=== PATIENT | male | born 2000 | race Caucasian/White ===

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

== ENCOUNTER 2020-04-10 20:23 | Emergency (ER) | payer MEDICAID, SELFPAY ==
[2020-04-10 20:29] VITALS: BP 137/80; PULSE 88; RESP 16; TEMP 36.8; O2SAT 98
--- NOTE | 2020-04-10 20:48 | ED.GENADUL_ITS ---
Discharge Plan Disposition Patient Disposition: HOME Condition: Stable Discharge Details Chief Complaint: Laceration Clinical Impression: Foreign body of right thigh Primary Care Provider: Billy Capellan ED Provider: Eligio Baez Home Meds and New Rx's Prescriptions: New cephalexin 500 mg tablet 500 mg PO QID Qty: 28 RF: 0 Continued albuterol sulfate [ProAir HFA] 90 mcg/actuation Hfa Aerosol Inhaler INHALATION RF: 0 Discharge Instructions Additional Instructions: if you have spreading redness or yellow/white discharge from the wound return to the emergency department try to keep the wound clean, if it becomes dirty clean with soap and water Medical Decision Making 19yo male comes in after he was moving pressure treated and wood and a splinter went into his right anterior upper thigh area. No falls or other trauma. States he tried pulling the wood out but couldn't so came here. He does have what feels like a splinter with 1mm break in skin no redness or rashes. Will inject lidocaine and attempt removal removed a 1cm piece of wood and did not feel or see any other FB even on u/s. Will place on abx and return precautions given Differential Diagnosis Differential Diagnosis: foreign body, lac HPI General Mode of arrival: ambulatory . Date/Time Provider Initiated Documentation: 04/10/20 20:36 . Limitations to Documentation: no limitations . Information obtained by: patient . History of Present Illness 19 year old M presents to the emergency department with the chief complaint of ?foreign body, described as moderate, Patient reports no radiation. Patient started experiencing this hour(s) (1) and it has been constant. No relieving factors improve symptom(s), No exacerbating factors reported . Patient did receive the following treatments prior to arrival, none Related Data Home Medications Medication Instructions Recorded Confirmed albuterol sulfate [ProAir HFA] INHALATION 04/10/20 cephalexin 500 mg PO QID #28 tab 04/10/20 Previous Rx's Medication Instructions Recorded cephalexin 500 mg PO QID #28 tab 04/10/20 Allergies Allergy/AdvReac Type Severity Reaction Status Date / Time No Known Allergies Allergy Verified 03/29/19 16:30 General Stated Complaint: Laceration MANDEEP: 4 Review of Systems All systems reviewed & are unremarkable except as noted in HPI and below Constitutional Constitutional: Denies chills, Denies fever(s) and Denies weakness ENT Ears, Nose, Mouth, and Throat: Denies change in voice Cardiovascular Cardiovascular: Denies dyspnea Respiratory Respiratory: Denies dyspnea Gastrointestinal Gastrointestinal: Denies abdominal pain, Denies nausea and Denies vomiting Genitourinary Genitourinary: Denies dysuria Musculoskeletal Musculoskeletal: Denies joint swelling Integumentary/Breasts Skin/Breast: Denies rash Neurologic Neurologic: Denies weakness Psychiatric Psychiatric: Denies depression PFSH Family History Mother Healthy adult on routine physical examination Other Diabetes MGM, MGF Essential hypertension MGF Personal history of malignant neoplasm MGGM - breast, colon, cervical Heart disease MGF Myocardial infarction MGF Father Myocardial infarction Near the age of 50 Social History Smoking/Tobacco Use Status: Never Alcohol Intake: never Drug use: Never Substance use type: does not use Household members: family and other Details: Mom, Brother, Grandparents Housing: house Pets and animals: Yes Pets and animals: dog(s) and bird(s) Sexually active: No Seatbelt use: always Helmet use: Yes 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 Working smoke detector in home: Yes Fire extinguisher in home: Yes Carbon monox detector in home: Yes Firearms in home: Yes Firearms unloaded and locked: Yes Do you feel safe at home: Yes Do you feel safe in your relationship?: Yes Exam Const General: no acute distress Orientation: alert HENMT Head: normal to inspection Ears: external ears normal General nose exam: external nose normal Mouth: moist mucous membranes Eyes General: appearance normal, both eyes and all related structures Neck Neck: normal visual inspection Resp Effort & Inspection: normal respiratory effort and able to speak in complete sentences Cardio Rate: regular rate Skin General skin exam: no rashes or lesions noted Neuro General: patient alert and patient oriented x3 Extrem General: normal to inspection Psych Mental Status: mental status grossly normal Course Vital Signs Vital signs: Vital Signs Temperature 36.8 C 04/10/20 20: Pulse 88 04/10/20 20:29 Respiratory Rate 16 04/10/20 20:29 Blood Pressure 137/80 04/10/20 20:29 Pulse Oximetry 98 04/10/20 20:29 Temperature 36.8 C 04/10/20 20:29 Temperature Source Skin 04/10/20 20:29 Pulse 88 04/10/20 20:29 Respiratory Rate 16 04/10/20 20:29 Respiratory Effort Non-Labored 04/10/20 20:32 Blood Pressure 137/80 04/10/20 20:29 Blood Pressure Position Sitting 04/10/20 20:29 Pulse Oximetry 98 04/10/20 20:29 Oxygen Delivery Method Room Air 04/10/20 20:29 Oxygen Flow Rate 0 04/10/20 20:29 Pain Level 4 04/10/20 20:29 Procedures Foreign Body Removal Time Out Performed: yes Site: right and lower extremity Description of foreign body: other (splinter of wood) Sedation/Analgesia: none Technique: removal with forceps Confirmed by:: direct visualization and ultrasound Complications: none Post-procedure exam: awake, alert, normal BP, normal HR and normal O2 sat Neurovascular: normal distal pulse, normal capillary fill, distal light touch sensation intact, distal motor function normal, no signs of compartment syndrome and no change from pre-procedure
[2020-04-10] MEDS: Cephalexin 500 MG CAP PO (21:38)
== END 2020-04-10 21:20 | disposition home or self-care (01) ==
PROVIDERS: Emergency Provider Emergency Medicine; PCP Pediatrics
DX: S71.141A Puncture wound with foreign body, right thigh, initial encounter (principal); W45.8XXA Other foreign body or object entering through skin, initial encounter; Y99.0 Civilian activity done for income or pay
CPT/HCPCS: 90471; 99284; 99283

== ENCOUNTER 2020-07-12 09:17 | Emergency (ER) | payer MEDICAID, SELFPAY ==
[2020-07-12 09:25] VITALS: BP 120/80; PULSE 85; RESP 18; TEMP 37.2; O2SAT 97
--- NOTE | 2020-07-12 10:24 | ED.GENADUL_ITS ---
Discharge Plan Disposition Patient Disposition: HOME Condition: Stable Discharge Details Clinical Impression: URI (upper respiratory infection), Post-tussive emesis Primary Care Provider: Billy Capellan ED Provider: Constantine Barron Home Meds and New Rx's Prescriptions: No Action No Known Home Meds RF: 0 Discharge Instructions Instructions: Upper Respiratory Infection (ED) Additional Instructions: Please take ibuprofen over the counter. Take 600mg by mouth every 6 hours as needed for fever or discomfort. Please drink plenty of fluids to stay hydrated and allow for plenty of rest. COVID-19 testing is pending. Please quarantine yourself until results are negative. Please contact your primary care physician to arrange follow-up. Return to the ER for any worsening or new concerning symptoms. Stand Alone Forms: PENDING COVID-19 TESTING, Work Release Referrals: Billy Capellan MD [Primary Care Provider] - Discharge Data Discharge Date/Time-TO BE ENTERED AT DEPARTURE: 07/12/20 11:45 Medical Decision Making 19-year-old male here with productive cough cough over the past 3 days, associated fever, body aches, sinus congestion, posttussive emesis. Lungs are clear to auscultation. Patient is saturating well in no respiratory distress. He does have intermittent cough. Abdominal exam is benign. No signs of focal bacterial infection on exam. Chest x-ray to assess for pneumonia was interpreted by radiology: No acute disease or suspicious finding. Concern for likely viral respiratory illness. Although early in the season, consider influenza. Consider COVID-19. COVID-19 testing pending at time of discharge. Patient recommended to quarantine. Symptomatic treatment advised including staying hydrated and allowing for plenty of rest. Usual and customary discharge instructions otherwise provided. HPI General Mode of arrival: ambulatory . Date/Time Provider Initiated Documentation: 07/12/20 09:35 . Limitations to Documentation: no limitations . Information obtained by: patient . HPI Narrative: 19-year-old male here with 3 to 4 days of respiratory illness. Patient notes 3 days of productive cough, cough is productive of brown sputum. He has associated posttussive emesis, muscle aches, headache, sinus congestion and fever. He does not have associated shortness of breath. No recent travel. No known covid exposure. Significant other is sick with respiratory illness. Related Data Home Medications Medication Instructions Recorded Confirmed Unknown [No Known Home Meds] 07/12/20 07/12/20 Allergies Allergy/AdvReac Type Severity Reaction Status Date / Time No Known Allergies Allergy Verified 07/12/20 09:30 General Stated Complaint: RespSymp MANDEEP: 3 Review of Systems All systems reviewed & are unremarkable except as noted in HPI and below Constitutional Constitutional: Reports body ache(s), Reports fever(s) and Reports headache(s) ENT Ears, Nose, Mouth, and Throat: Reports headache(s), Reports nasal congestion and Reports sore throat Cardiovascular Cardiovascular: Denies dyspnea Respiratory Respiratory: Reports cough and Denies dyspnea Gastrointestinal Gastrointestinal: Reports as per HPI, Denies abdominal pain and Denies nausea Neurologic Neurologic: Reports headache(s) PFSH Medical History Asthma History of prematurity Surgical History Repair of inguinal hernia Family History Mother Healthy adult on routine physical examination Other Diabetes MGM, MGF Essential hypertension MGF Personal history of malignant neoplasm MGGM - breast, colon, cervical Heart disease MGF Myocardial infarction MGF Father Myocardial infarction Near the age of 50 Social History Smoking/Tobacco Use Status: Never Alcohol Intake: never Drug use: Never Substance use type: does not use Household members: family and other Details: Mom, Brother, Grandparents Housing: house Pets and animals: Yes Pets and animals: dog(s) and bird(s) Sexually active: No Seatbelt use: always Helmet use: Yes 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 Working smoke detector in home: Yes Fire extinguisher in home: Yes Carbon monox detector in home: Yes Firearms in home: Yes Firearms unloaded and locked: Yes Do you feel safe at home: Yes Do you feel safe in your relationship?: Yes Exam Const General: cooperative and no acute distress HENMT Mouth: moist mucous membranes Throat: uvula midline, no peritonsillar masses, posterior oropharynx abnormal erythema; no cobblstoning, no edema and no exudates and no uvular edema Other: No stridor or trismus Eyes Conjunctivae: normal conjunctivae Sclera: normal sclerae Neck Neck: full ROM, trachea midline and supple Resp Effort & Inspection: normal respiratory effort and cough Auscultation: clear to auscultation bilaterally, no rales, no rhonchi and no wheezes Cardio Rate: regular rate and not tachycardic Rhythm: regular rhythm GI Palpation: soft, not firm, no guarding, no masses, not rigid and nontender Skin General skin exam: no rashes or lesions noted Neuro General: patient alert, patient awake and tone normal Psych Appearance: grossly normal Mental Status: mental status grossly normal Course Vital Signs Vital signs: Vital Signs Temperature 37.2 C 07/12/20 09:25 Pulse 85 07/12/20 09:25 Respiratory Rate 18 07/12/20 09:25 Blood Pressure 120/80 07/12/20 09:25 Pulse Oximetry 97 07/12/20 09:25 Temperature 37.2 C 07/12/20 09:25 Temperature Source Oral 07/12/20 09:25 Pulse 85 07/12/20 09:25 Respiratory Rate 18 07/12/20 09:25 Respiratory Effort Non-Labored 07/12/20 09:31 Blood Pressure 120/80 07/12/20 09:25 Blood Pressure Position Sitting 07/12/20 09:25 Pulse Oximetry 97 07/12/20 09:25 Oxygen Delivery Method Room Air 07/12/20 09:25 Oxygen Flow Rate 0 07/12/20 09:25 Pain Level 6 07/12/20 09:25
[2020-07-12 10:51] VITALS: BP 137/88; PULSE 95; RESP 18; TEMP 36.7; O2SAT 99
--- NOTE | 2020-07-12 11:02 | DI.RAD_ITS ---
EXAM: XR PORTABLE CHEST AP CLINICAL HISTORY: cough, pui TECHNIQUE: 2D digital imaging was performed. COMPARISON: No exams were available for comparison FINDINGS: MEDIASTINUM: Normal. HEART: Normal. PULMONARY VASCULATURE: Normal. LUNGS: Clear. PLEURAL SPACE: No pleural effusion or pneumothorax. BONE:Within normal limits for the patient's age. OTHER FINDINGS:Normal. IMPRESSION: No acute pulmonary findings. DATA REPOSITORY: RADIATION DOSE DELIVERED:
[2020-07-12 11:11] VITALS: BP 119/78; PULSE 68; RESP 18; TEMP 36.8; O2SAT 98
--- NOTE | 2020-07-12 11:26 | DI.VRAD_ITS ---
PROCEDURE INFORMATION: Exam: XR Chest, 1 View Exam date and time: 07/12/2020 10:56 AM Age: 19 years old Clinical indication: Cough; Additional info: Pui for covid TECHNIQUE: Imaging protocol: XR of the chest Views: 1 view. COMPARISON: CR CHEST 2 VIEWS PA,LAT 09/06/2017 9:01 AM FINDINGS: Lungs: The lungs are normally expanded and clear. Pleural space: Normal. Heart/Mediastinum: Normal heart and cardiomediastinal silhouette. Vasculature: Normal pulmonary vessel caliber. Normal aorta. Bones/joints: The bones are intact. IMPRESSION: No acute disease or suspicious finding. Dictated and Authenticated by: Dirk Beach MD. Ordering:AG Fitch MD
[2020-07-15 06:08] LABS: SARS-CoV-2 RNA Undetected (Undetected); SARS-CoV-2 Specimen Source Nasopharynx
--- NOTE | 2020-07-18 08:30 | NUR.NOTE ---
Nursing Note: Contacted PT regarding negative COVID results. Spoke to PT directly over the phone to provide results.
== END 2020-07-12 11:45 | disposition home or self-care (01) ==
PROVIDERS: Emergency Provider Student in an Organized Health Care Education/Training Program; PCP Pediatrics
DX: J06.9 Acute upper respiratory infection, unspecified (principal); R50.9 Fever, unspecified; R09.81 Nasal congestion; R11.10 Vomiting, unspecified; Z11.59 Encounter for screening for other viral diseases
CPT/HCPCS: 87449; 87880; 99284; U0003; 71045; 87081; 99283

== ENCOUNTER 2021-02-05 12:24 | Emergency (ER) | payer MEDICAID, SELFPAY ==
[2021-02-05 12:32] VITALS: BP 135/73; PULSE 96; RESP 20; TEMP 36.8; O2SAT 98
--- NOTE | 2021-02-05 13:35 | DI.RAD_ITS ---
EXAM: XR PORTABLE CHEST AP CLINICAL HISTORY: cough. TECHNIQUE: 2D digital imaging was performed. COMPARISON: CR,XR XR PORTABLE CHEST AP from 07/12/2020 FINDINGS: LUNGS: Clear. No pleural abnormality seen. HEART: Normal. MEDIASTINUM: Normal. OTHER FINDINGS: None. IMPRESSION: No acute pulmonary findings. DATA REPOSITORY: RADIATION DOSE DELIVERED: Total DLP
--- NOTE | 2021-02-05 13:44 | W.ED.GENAD ---
Discharge Plan Disposition Patient Disposition: HOME Condition: Stable Discharge Details Chief Complaint: RespSymp Clinical Impression: Cough Primary Care Provider: Billy Capellan ED Provider: Pa Yanez Home Meds and New Rx's Prescriptions: No Action No Known Home Meds RF: 0 Discharge Instructions Instructions: Acute Cough (ED) Additional Instructions: Chest x-ray rapid strep are negative. Throat culture and Covid test pending. Quarantine until your Covid test has returned negative. Xrcg-xwz-hvafzze medications as directed control. Rest, plenty of fluids to avoid dehydration. Please watch for new or worsening symptoms and return to the ER for any concerns. Otherwise I recommend reaching out your primary care provider a few days to discuss your symptoms and outpatient reevaluation. Stand Alone Forms: Work Release, POSITIVE COVID-19/TO BE TESTED Medical Decision Making 20-year-old gentleman presents with 3 high 4-day history of URI-like symptoms. Clinically he appears well, normotensive, pulse in the 90s, respirations appropriate, afebrile, O2 sat 98% on room air. Will obtain send out Covid swab as he appears stable and will likely not require admission, chest x-ray to rule out pneumonia, and a rapid strep. I do not believe that hematology laboratory are indicated. Breathing treatments are also not indicated. Rapid strep negative. Chest x-ray read by radiology as negative. Covid pending. Discussed patient. He will continue with [id number]-jge-ceopdxe medication for conservative care. No clear indication therapy. Discussed importance of quarantining until his Covid test returns negative. Medical Records Medical records reviewed: Yes I reviewed the patient's medical records. Imaging Data Radiologic Study: Attestation: I personally reviewed and interpreted this imaging study as follows: Imaging: X-Ray Radiologist's impression: Chest negative Lab Data Lab results narrative: Rapid strep negative HPI General Mode of arrival: ambulatory. Date/Time Provider Initiated Documentation: 02/05/21 12:44. Limitations to Documentation: no limitations. Information obtained by: patient. HPI Narrative: This is a 20-year-old gentleman, denies past medical history, does not smoke cigarettes. He presents to the ER reporting 3-4-day history of nasal and chest congestion, cough that is primarily dry but does occasionally cough clear phlegm. Mildly sore throat, vomiting x1 late last night early this morning. He believes the vomiting was induced by excessive coughing. Denies headache, ear pain, fever, chest pain, shortness of breath, abdominal pain, diarrhea. He reports that his chest wall is sore when he coughs. He has tried fdkc-fom-pxkpqzs medication with minimal relief. He denies recent travel or sick contacts. Denies rash, pain or swelling in the legs. Related Data Home Medications Medication Instructions Recorded Confirmed Unknown [No Known Home Meds] 07/12/20 02/05/21 Allergies Allergy/AdvReac Type Severity Reaction Status Date / Time No Known Allergies Allergy Verified 02/05/21 12:39 General Stated Complaint: RespSymp MANDEEP: 3 Review of Systems Constitutional Constitutional: Denies fever(s) and Denies headache(s) ENT Ears, Nose, Mouth, and Throat: Denies headache(s) and Reports sore throat Cardiovascular Cardiovascular: Denies chest pain and Denies dyspnea Respiratory Respiratory: Reports cough and Denies dyspnea Gastrointestinal Gastrointestinal: Denies abdominal pain, Denies nausea and Reports vomiting Musculoskeletal Musculoskeletal: Denies back pain Integumentary/Breasts Skin/Breast: Denies rash Neurologic Neurologic: Denies headache(s) [facility] Medical History (Updated 02/05/21 @ 13:52 by KIERRA Moran) Asthma History of prematurity Surgical History Repair of inguinal hernia Family History Mother Healthy adult on routine physical examination Other Diabetes MGM, MGF Essential hypertension MGF Personal history of malignant neoplasm MGGM - breast, colon, cervical Heart disease MGF Myocardial infarction MGF Father Myocardial infarction Near the age of 50 Social History Smoking/Tobacco Use Status: Never Smoking risk assessment performed?: Yes Alcohol Intake: never Drug use: Never Substance use type: does not use Household members: family and other Details: Mom, Brother, Grandparents Housing: house Pets and animals: Yes Pets and animals: dog(s) and bird(s) Sexually active: No Seatbelt use: always Helmet use: Yes 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 Working smoke detector in home: Yes Fire extinguisher in home: Yes Carbon monox detector in home: Yes Firearms in home: Yes Firearms unloaded and locked: Yes Do you feel safe at home: Yes Do you feel safe in your relationship?: Yes Exam Const General: cooperative, healthy appearing, comfortable and no acute distress Orientation: alert, awake and oriented x3 HENMT Head: normal to inspection, normocephalic and atraumatic Ears: external ears normal, TM's normal bilaterally and EAC's normal General nose exam: external nose normal and nares normal Face and sinus: normal facial exam Mouth: moist mucous membranes Throat: uvula midline, no peritonsillar masses and posterior oropharynx abnormal erythema (Mild) Eyes General: appearance normal, both eyes and all related structures Conjunctivae: conjunctivae normal Sclera: sclerae normal Neck Neck: normal visual inspection, full ROM, no lymphadenopathy, trachea midline, supple and nontender Resp Effort & Inspection: normal respiratory effort and able to speak in complete sentences Auscultation: clear to auscultation bilaterally Cardio Rate: regular rate Rhythm: regular rhythm GI Palpation: soft and nontender Back/Spine/Pelvis Back: No back tenderness Skin General skin exam: no rashes or lesions noted Neuro General: patient alert, patient awake, moves all extremities and no focal motor deficits Cognition: normal cognition Speech: speech normal Gait: normal gait Sensory Exam: no sensory deficits noted Psych Appearance: grossly normal Mental Status: mental status grossly normal Course Vital Signs Vital signs: Vital Signs Temperature 36.8 C 02/05/21 12:32 Pulse 96 H 02/05/21 12:32 Respiratory Rate 20 02/05/21 12:32 Blood Pressure 135/73 02/05/21 12:32 Pulse Oximetry 98 02/05/21 12:32 Temperature 36.8 C 02/05/21 12:32 Temperature Source Oral 02/05/21 12:32 Pulse 96 H 02/05/21 12:32 Respiratory Rate 20 02/05/21 12:32 Respiratory Effort Non-Labored 02/05/21 13:19 Respiratory Depth Normal 02/05/21 13:19 Blood Pressure 135/73 02/05/21 12:32 Blood Pressure Position Sitting 02/05/21 12:32 Pulse Oximetry 98 02/05/21 12:32 Oxygen Delivery Method Room Air 02/05/21 12:32 Oxygen Flow Rate 0 02/05/21 12:32 Pain Level 3 02/05/21 12:32 Lab/Test Results Lab/Test Results: 02/05/21 13:05 Pharynx Streptococcus Screen (SHANELL) - Pending POC Strep Test-EDMUNDO(Rapid) Start: 02/05/21 12:44 Freq: .Rapid Strep Test Status: Active Protocol: Document 02/05/21 13:13 MMQ (Rec: 02/05/21 13:13 [id number] [id number]) Strep test-EDMUNDO(Rapid)-POC POC-Strep test-EDMUNDO (Rapid) Negative POC-Strep test-EDMUNDO (Rapid) Negative
[2021-02-07 12:50] LABS: COVID-19 RT-PCR UVMMC Result Negative (Negative)
== END 2021-02-05 14:05 | disposition home or self-care (01) ==
PROVIDERS: Emergency Provider Physician Assistant; PCP Pediatrics
DX: R05 Cough (principal); J02.9 Acute pharyngitis, unspecified; Z20.822 Contact with and (suspected) exposure to COVID-19
CPT/HCPCS: 87880; 99283; U0003; 71045; 87081

== ENCOUNTER 2021-10-27 17:54 | Emergency (ER) | payer MEDICAID, SELFPAY ==
[2021-10-27 18:06] VITALS: BP 150/89; PULSE 85; RESP 18; TEMP 36.8; O2SAT 100
--- NOTE | 2021-10-27 18:27 | ED.GENADUL_ITS ---
Discharge Plan Disposition Patient Disposition: HOME Condition: Stable Discharge Details Clinical Impression: Injury of groin Primary Care Provider: Billy Capellan ED Provider: Constantine Barron Home Meds and New Rx's Prescriptions: Continued albuterol sulfate 90 mcg/actuation HFA aerosol inhaler 2 puff inhalation Q4H PRN (Reason: shortness of breath or wheezing) Qty: 18 RF: 1 benzonatate 100 mg capsule 100 mg PO TID PRN (Reason: cough) Qty: 20 RF: 0 Discharge Instructions Additional Instructions: Please take ibuprofen over the counter. Take 600mg by mouth every 6 hours as needed for pain. Wear supportive underwear over the next week. Please contact your primary care physician to arrange follow-up. If you develop increased swelling and pain, or any new or worsening symptoms return to the emergency department immediately for reassessment Stand Alone Forms: Work Release Referrals: Alli Velasquez MD [ [facility] STAFF PHYSICIAN] - Discharge Data Discharge Date/Time-TO BE ENTERED AT DEPARTURE: 10/27/21 18:41 Medical Decision Making 20-year-old male presents 1 day status post injury to his groin with pain in his perineum. No concerning findings on exam. Patient was instructed to ice and use NSAIDs and monitor over the next couple days. He was instructed return immediately should any worsening or new concerning symptoms. HPI General Mode of arrival: ambulatory . Date/Time Provider Initiated Documentation: 10/27/21 18:18 . Limitations to Documentation: no limitations . Information obtained by: patient . HPI Narrative: 21-year-old male presents with chief complaint of groin pain. Patient notes that he was hit by a wood board yesterday in his groin at work. He notes continued pain in perineum. Pain is mild. No associated testicular swelling. No difficulty urinating or hematuria. No abdominal pain. Related Data Home Medications Medication Instructions Recorded Confirmed albuterol sulfate 90 mcg/actuation 2 puff INHALATION Q4H PRN #18 g 02/05/21 aerosol inhaler benzonatate 100 mg capsule 100 mg PO TID PRN #20 cap 02/05/21 Previous Rx's Medication Instructions Recorded albuterol sulfate 90 mcg/actuation 2 puff INHALATION Q4H PRN #18 g 02/05/21 aerosol inhaler benzonatate 100 mg capsule 100 mg PO TID PRN #20 cap 02/05/21 Allergies Allergy/AdvReac Type Severity Reaction Status Date / Time No Known Allergies Allergy Verified 02/05/21 12:39 General Stated Complaint: Male Reproductive Problem MANDEEP: 3 Review of Systems Gastrointestinal Gastrointestinal: Reports as per HPI Genitourinary Genitourinary: Reports as per HPI Integumentary/Breasts Skin/Breast: Reports other (No laceration) PFSH All Active Problems Cough (Acute) Injury of groin (Acute) Learning difficulty (Acute) IEP Medical History Asthma History of prematurity Surgical History Repair of inguinal hernia Family History Mother Healthy adult on routine physical examination Other Diabetes MGM, MGF Essential hypertension MGF Personal history of malignant neoplasm MGGM - breast, colon, cervical Heart disease MGF Myocardial infarction MGF Father Myocardial infarction Near the age of 50 Social History Smoking/Tobacco Use Status: Never Smoking risk assessment performed?: Yes Alcohol Intake: current Alcohol Intake frequency: a few times a month Drug use: Never Substance use type: does not use Household members: family and other Details: Mom, Brother, Grandparents Housing: house Pets and animals: Yes Pets and animals: dog(s) and bird(s) Sexually active: No Seatbelt use: always Helmet use: Yes 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 Working smoke detector in home: Yes Fire extinguisher in home: Yes Carbon monox detector in home: Yes Firearms in home: Yes Firearms unloaded and locked: Yes Do you feel safe at home: Yes Do you feel safe in your relationship?: Yes Exam Const General: cooperative and no acute distress Cardio Rate: not tachycardic GI Palpation: soft, not firm, no guarding, no masses, not rigid and nontender Male General Exam: No ecchymosis, No lacerations, No perineal induration and Yes tenderness (Mild perineum) Penis: normal penis and no swelling Meatus: no meatla discharge Scrotum: scrotum normal, no masses and no scrotal swelling Testes: normal, testicular lie normal and epididymides normal Skin General skin exam: no rashes or lesions noted Extrem General: no edema Course Vital Signs Vital signs: Vital Signs Temperature 36.8 C 10/27/21 18:06 Pulse 85 10/27/21 18:06 Respiratory Rate 18 10/27/21 18:06 Blood Pressure 150/89 H 10/27/21 18:06 Pulse Oximetry 100 10/27/21 18:06 Temperature 36.8 C 10/27/21 18:06 Temperature Source Temporal Artery Scan 10/27/21 18:06 Pulse 85 10/27/21 18:06 Respiratory Rate 18 10/27/21 18:06 Respiratory Effort Non-Labored 10/27/21 18:20 Blood Pressure 150/89 H 10/27/21 18:06 Pulse Oximetry 100 10/27/21 18:06 Oxygen Delivery Method Room Air 10/27/21 18:06 Oxygen Flow Rate 0 10/27/21 18:06 Pain Level 7 10/27/21 18:06 PAWSS Have you Been Recently Intoxicated or Drunk Within the Last 30 days?: No Have you Ever Experienced Previous Episodes of Alcohol Withdrawal?: No Have you ever Experienced Withdrawal Seizures?: No Have you ever Experienced Delirium Tremens(DT)s?: No Have you ever undergone Alcohol Rehabilitation Treatment (i.e, inpt ot outpatient treatment programs)?: No Have you ever Experienced Blackouts?: No Have you ever Combined Alcohol with other Downers within the last 90 days?: No Have you ever Combined Alcohol with any other Substance of Abuse during the last 90 days?: No Positive Blood Alcohol level on Presentation? [PCS.BAL]: No Evidence of Increased Autonomic Activity (i.e. HR>120, tremor, sweating, agitation, nausea)?: No Result: 0
== END 2021-10-27 18:41 | disposition home or self-care (01) ==
PROVIDERS: Emergency Provider Student in an Organized Health Care Education/Training Program; PCP Pediatrics
DX: S39.81XA Other specified injuries of abdomen, initial encounter (principal); W22.8XXA Striking against or struck by other objects, initial encounter; Y99.0 Civilian activity done for income or pay
CPT/HCPCS: 99282

== ENCOUNTER 2021-11-17 11:51 | Emergency (ER) | payer MEDICAID, SELFPAY ==
--- NOTE | 2021-11-17 11:45 | DI.US_ITS ---
Exam(s) US SCROTUM EXAM: US SCROTUM CLINICAL HISTORY: struck in groin 1 week ago, pain TECHNIQUE: Scrotal ultrasound was performed utilizing scanning with high-frequency transducer. COMPARISON: No exams were available for comparison FINDINGS: The testes are normal in size and shape and are normal in echotexture. There is normal vascular flow of the testes on Doppler evaluation and flow is symmetrical. No testicular mass identified. The epididymi are unremarkable in appearance with normal vascular flow with an incidental 5 millimete r left epididymal cyst or spermatocele.. There is no evidence of a varicocele or hydrocele. IMPRESSION: Normal scrotal ultrasound. RADIATION DOSE DELIVERED:
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
[2021-11-17 11:56] VITALS: BP 139/94; PULSE 85; TEMP 37.2; O2SAT 100
[2021-11-17 12:56] LABS: Bilirubin Negative (Negative); Blood Negative (Negative); Clarity Clear (Clear); Glucose Negative (Negative); Ketones Negative (Negative); Leukocyte Esterase Negative (Negative); Nitrite Negative (Negative); Specific Gravity >= 1.030 (1.005-1.025); Urobilinogen 0.2 EU/dL (Up TO 0.2)
== END 2021-11-17 13:40 | disposition home or self-care (01) ==
PROVIDERS: Emergency Provider Physician Assistant; PCP Pediatrics
DX: N50.812 Left testicular pain (principal)
CPT/HCPCS: 99284; 76870; 81003; 99283

== ENCOUNTER 2021-11-30 17:14 | Emergency (ER) | payer MEDICAID, SELFPAY ==
[2021-11-30 17:23] VITALS: BP 141/89; PULSE 84; RESP 20; TEMP 37.3; O2SAT 97
--- NOTE | 2021-11-30 17:45 | ED.GENADUL_ITS ---
Discharge Plan Disposition Patient Disposition: HOME Condition: Stable Discharge Details Clinical Impression: Viral URI with cough Primary Care Provider: Unknown,Unknown ED Provider: Rosario Jacinto Home Meds and New Rx's Prescriptions: New benzonatate 100 mg capsule 100 mg PO TID PRN (Reason: cough) Qty: 10 RF: 0 Continued albuterol sulfate 90 mcg/actuation HFA aerosol inhaler 2 puff inhalation Q4H PRN (Reason: shortness of breath or wheezing) Qty: 18 RF: 1 Discharge Instructions Instructions: Upper Respiratory Infection (ED), Acute Cough (ED) Additional Instructions: Drink plenty of fluids and get plenty of rest. Alternate tylenol and motrin as needed and directed for pain. Continue your albuterol inhaler as needed and directed for cough or shortness of breath. A prescription for cough medication has been sent electronically to your pharmacy. You can continue tuzr-ibq-ovhrnsm cough and cold medication as needed and directed. Follow-up with your primary care doctor in 1 week. Return to the emergency department with any worsening or new concerning symptoms. Please quarantine until your COVID test result is available if confirmed negative. Stand Alone Forms: PENDING COVID-19 TESTING, Work Release Discharge Data Discharge Date/Time-TO BE ENTERED AT DEPARTURE: 11/30/21 18:45 Discharge Physician: Rosario Jacinto Medical Decision Making 21-year-old male presents to the ED with complaint of sore throat, headache, cough, wheezing for the past 4 days. Sent to the ED by his employer for a work note. Patient is vaccinated for COVID but has not yet received a booster. He appears comfortable and nontoxic. Normal ENT exam. Lungs clear bilaterally. Oxygen saturation 97% on room Differential diagnosis includes COVID, viral syndrome, URI with cough. As patient has clear lungs throughout without fever and normal oxygen saturation, do not feel indication for chest x-ray at this time. He is advised to continue his albuterol inhaler and we will send a prescription for cough medication. A send out COVID swab was obtained. Advised to quarantine until his test result is available and if confirmed negative. Work note given. Advised to follow up with the primary care doctor for re-evaluation. Usual and customary return precautions given prior to discharge. Medical Records Medical records reviewed: Yes I reviewed the patient's medical records. HPI General Mode of arrival: ambulatory . Date/Time Provider Initiated Documentation: 11/30/21 17:23 . Limitations to Documentation: no limitations . Information obtained by: patient . HPI Narrative: Patient is a 21-year-old male with no significant past medical history presenting with nasal congestion and runny nose, sore throat, cough and occasional wheezing for the past 4 days. Patient was sent here by his employer for evaluation and for work note. Patient states the coughing and chest congestion is a significant bothering him the most. He states he has been fully vaccinated for COVID but has not yet received a COVID booster. He denies any known exposure to coronavirus. He does admit to some loss of sense of smell. He admits to occasional vomiting that occurs with coughing episodes. Related Data Home Medications Medication Instructions Recorded Confirmed albuterol sulfate 90 mcg/actuation 2 puff INHALATION Q4H PRN #18 g 02/05/21 11/17/21 aerosol inhaler benzonatate 100 mg PO TID PRN #10 cap 11/30/21 Previous Rx's Medication Instructions Recorded albuterol sulfate 90 mcg/actuation 2 puff INHALATION Q4H PRN #18 g 02/05/21 aerosol inhaler benzonatate 100 mg PO TID PRN #10 cap 11/30/21 Allergies Allergy/AdvReac Type Severity Reaction Status Date / Time No Known Allergies Allergy Verified 11/17/21 12:12 General Stated Complaint: RespSymp MANDEEP: 4 Review of Systems All systems reviewed & are unremarkable except as noted in HPI and below Constitutional Constitutional: Reports as per HPI, Denies chills, Denies fever(s) and Reports headache(s) Eyes Eyes: Denies blurry vision ENT Ears, Nose, Mouth, and Throat: Denies dizziness, Reports headache(s), Reports sore throat and Denies throat swelling Cardiovascular Cardiovascular: Denies chest pain and Denies dyspnea Respiratory Respiratory: Reports cough and Denies dyspnea Gastrointestinal Gastrointestinal: Denies abdominal pain, Denies diarrhea and Denies vomiting Genitourinary Genitourinary: Denies hematuria and Denies dysuria Musculoskeletal Musculoskeletal: Denies back pain and Denies numbness Integumentary/Breasts Skin/Breast: Denies lesions and Denies rash Neurologic Neurologic: Denies dizziness, Reports headache(s), Denies localized weakness and Denies numbness Allergic/Immunologic Allergic/Immunologic: Denies throat swelling PFSH All Active Problems (Updated 11/30/21 @ 17:53 by Rosario Jacinto DO) Viral URI with cough (Acute) Cough (Acute) Injury of groin (Acute) Left testicular pain (Acute) Learning difficulty (Acute) IEP Medical History (Updated 11/30/21 @ 17:53 by Rosario Jacinto DO) Asthma History of prematurity Surgical History Repair of inguinal hernia Family History Mother Healthy adult on routine physical examination Other Diabetes MGM, MGF Essential hypertension MGF Personal history of malignant neoplasm MGGM - breast, colon, cervical Heart disease MGF Myocardial infarction MGF Father Myocardial infarction Near the age of 50 Social History Smoking/Tobacco Use Status: Never Smoking risk assessment performed?: Yes Alcohol Intake: current Alcohol Intake frequency: a few times a month Drug use: Never Substance use type: does not use Household members: family and other Details: Mom, Brother, Grandparents Housing: house Pets and animals: Yes Pets and animals: dog(s) and bird(s) Sexually active: No Seatbelt use: always Helmet use: Yes Drive intox or ride 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 Working smoke detector in home: Yes Fire extinguisher in home: Yes Carbon monox detector in home: Yes Firearms in home: Yes Firearms unloaded and locked: Yes Do you feel safe at home: Yes Do you feel safe in your relationship?: Yes Exam Const General: cooperative, healthy appearing and no acute distress HENMT Head: normal to inspection Ears: hearing grossly normal bilaterally and external ears normal Face and sinus: normal facial exam Mouth: oral mucosae normal Throat: posterior oropharynx normal Eyes General: appearance normal, both eyes and all related structures EOM: EOM intact bilaterally Neck Neck: normal visual inspection and No submandibular swelling Lymphatic: no lymphadenopathy noted Chest Chest: normal inspection of the chest and no tenderness Resp Effort & Inspection: normal respiratory effort and able to speak in complete sentences Auscultation: clear to auscultation bilaterally Cardio Rate: regular rate Rhythm: regular rhythm GI Inspection: normal to inspection Palpation: soft, not firm, not rigid and nontender Auscultation: normal bowel sounds Skin General skin exam: no rashes or lesions noted Neuro General: patient alert, patient awake and patient oriented x3 Cognition: normal cognition Speech: speech normal Motor: muscle tone normal throughout Sensory Exam: no sensory deficits noted Extrem General: normal to inspection, full ROM, capillary refill normal, no calf tenderness bilaterally and no edema Psych Appearance: grossly normal Mental Status: mental status grossly normal Speech and Movement: speech and movement normal Affect: normal affect Course Vital Signs Vital signs: Vital Signs Temperature 99.2 F 11/30/21 17:23 Pulse 84 11/30/21 17:23 Respiratory Rate 20 11/30/21 17:23 Blood Pressure 141/89 H 11/30/21 17:23 Pulse Oximetry 97 11/30/21 17:23 Temperature 99.2 F 11/30/21 17:23 Temperature Source Oral 11/30/21 17:23 Pulse 84 11/30/21 17:23 Respiratory Rate 20 11/30/21 17:23 Respiratory Effort 11/30/21 17:32 Respiratory Depth Normal 11/30/21 17:32 Blood Pressure 141/89 H 11/30/21 17:23 Blood Pressure Position Standing 11/30/21 17:23 Pulse Oximetry 97 11/30/21 17:23 Oxygen Delivery Method Room Air 11/30/21 17:23 Oxygen Flow Rate 0 11/30/21 17:23 PAWSS Have you Been Recently Intoxicated or Drunk Within the Last 30 days?: No Have you Ever Experienced Previous Episodes of Alcohol Withdrawal?: No Have you ever Experienced Withdrawal Seizures?: No Have you ever Experienced Delirium Tremens(DT)s?: No Have you ever undergone Alcohol Rehabilitation Treatment (i.e, inpt ot outpatient treatment programs)?: No Have you ever Experienced Blackouts?: No Have you ever Combined Alcohol with other Downers within the last 90 days?: No Have you ever Combined Alcohol with any other Substance of Abuse during the last 90 days?: No Positive Blood Alcohol level on Presentation? [PCS.BAL]: No Evidence of Increased Autonomic Activity (i.e. HR>120, tremor, sweating, agitation, nausea)?: No Result: 0
[2021-11-30 18:42] VITALS: BP 140/44; PULSE 78; RESP 20; TEMP 37.1; O2SAT 89
[2021-12-02 11:04] LABS: COVID-19 RT-PCR UVMMC Result Negative (Negative)
--- NOTE | 2021-12-02 13:50 | NUR.NOTE ---
patient notified of negative covid test results.
== END 2021-11-30 18:45 | disposition home or self-care (01) ==
PROVIDERS: Emergency Provider Physician Assistant
DX: J06.9 Acute upper respiratory infection, unspecified (principal); R05.1 Acute cough; Z20.822 Contact with and (suspected) exposure to COVID-19; R51.9 Headache, unspecified
CPT/HCPCS: 99283; U0003